=== PATIENT | male | born 1980 | race Caucasian/White ===

== ENCOUNTER 2016-12-21 14:38 | Emergency (ER) | payer BC, OTHER ==
[2016-12-21 14:46] VITALS: BP 149/85; BMI 23.1
--- NOTE | 2016-12-21 16:43 | RAD ---
HISTORY: Right foot pain. Study: Three-view right foot. Comparison: None. Findings: No acute cortical disruption or dislocation can be identified. There is no radiopaque foreign body. The visualized portions of the talus and calcaneus are unremarkable. IMPRESSION: Negative exam of the right foot. Reported By:
[2016-12-21 17:02] LABS: BASOPHILS # (AUTO) 0.1 X10^3/uL (0.0-0.1); BASOPHILS % (AUTO) 0.5 % (0.2-1.0); EOSINOPHILS # (AUTO) 0.1 x10^3/uL (0.0-0.2); EOSINOPHILS % (AUTO) 0.7 % (0.9-2.9); HEMATOCRIT 44.8 % (42.0-54.0); HEMOGLOBIN 15.7 g/dL (13.5-18.0); LYMPHOCYTES # (AUTO) 1.5 X10^3/uL (1.3-2.9); LYMPHOCYTES % (AUTO) 10.7 % (21.0-51.0); MEAN CORPUSCULAR HEMOGLOBIN 29.4 pg (27.0-34.0); MEAN CORPUSCULAR HGB CONC 35.1 g/dL (33.0-35.0); MEAN CORPUSCULAR VOLUME 83.7 fL (80.0-100.0); MEAN PLATELET VOLUME 9.5 fL (7.4-11.0); NEUTROPHILS # (AUTO) 11.3 x10^3/uL (2.2-4.8); NEUTROPHILS % (AUTO) 81.1 % (42.0-75.0); PLATELET COUNT 171 X10^3/uL (150.0-450.0); RED BLOOD COUNT 5.35 X10^6/uL (4.7-6.0); RED CELL DISTRIBUTION WIDTH 12.8 % (11.6-16.5); WHITE BLOOD COUNT 13.9 X10^3/uL (3.6-10.0)
[2016-12-21] MEDS ORDERED: NORCO 5/325 MG TAB PO ONE (17:13)
--- NOTE | 2016-12-21 17:13 | DR.GENAD ---
HPI - PCP Primary Care Physician: CHUCK BEAN - HPI Comment HPI Comment: Paaresthesia / pian in right foot and leg - Complaint/Symptoms Chief Complaint Doctors Comments: Onset of pain in r. foot today. He has numbness in the right calf and foot since the morning. He denies experiencing trauma to the extremity. He had driven a [address] round trip from here to [facility] and back. Chief Complaint:: RIGHT FOOT AND CALF PAIN REDNESS AND TIGHTNESS - Source History Provided: Patient - Mode of Arrival Mode of Arrival: Ambulatory - Timing Onset of Chief Complaint: 12/21/16 Came on: Gradually - Severity Severity: Mild - Modifying Factors Worsens:: walking Improves:: nothing PMH - PMH Past Medical History: No Past Surgical History: Yes Surgical History: Appendectomy Past Surgical History Comment: NIPPER RING REPAIR - Family History History of Family Medical Conditions: Yes Family Medical History: Hypertension - Social History Does patient currently use any type of tobacco product: No Have you used tobacco products in the last 12 months: No Type of Tobacco Use: Smokeless How many years tobacco product used: 10 Does any household member use tobacco: No Alcohol Use: Occasionally Do you use any recreational Drugs:: No Lives With: Family Lives Where: Home - infectious screening In the last 2 months have you had wt loss of >10#?: NO Have you had fever, night sweats or hemotysis?: No Have you traveled outside the country in the last 6 months?: No Isolation: Standard ROS - Review of Systems Constitutional: No Symptoms Reported Eyes: No Symptoms Reported ENTM: No Symptoms Reported Respiratoy: No Symptoms Reported Cardiovascular: No Symptoms Reported Gastrointestinal/Abdominal: No Symptoms Reported Genitourinary: No Symptoms Reported Neurological: No Symptoms Reported, Paresthesia (Rt. lower extremity) Musculoskeletal: No Symptoms Reported, Foot (pain (rt.)) Integumentary: No Symptoms Reported Hematologic/Lymphatic: No Symptoms Reported Endocrine: No Symptoms Reported Psychiatric: No Symptoms Reported All Other Systems: Reviewed and Negative PE - Vital Signs Vitals: Temperature 98.1 F Pulse Rate 89 Respiratory Rate 20 Blood Pressure 149/85 O2 Sat by Pulse Oximetry 100 - General Limitations: No Limitations General Appearance: Alert, In No Apparent Distress - Head Head Exam: Normal Inspection - Eyes Eye exam: Normal Appearance - ENT ENT Exam: Normal Exam External Ear Exam: Normal External Inspection TM/Canal Exam: Bilateral Normal Nose Exam: Normal Nose Exam Mouth Exam: Normal Inspection Throat Exam: Normal Inspection - Neck Neck Exam: Normal Inspection - Chest Chest Inspection: Normal Inspection - Respiratory Respiratory Exam: Normal Lung Sounds Bilat Respiratory Exam: Bilateral Clear to Auscultation - Cardiovascular Cardiovascular Exam: Regular Rate, Normal Rhythm - Abdominal Exam Abdominal Exam: Normal Inspection, Normal Bowel Sounds, Soft - Extremities Extremities Exam: Normal Inspection, Tenderness (proximal, dorsal/lateral area of right foot.) - Back Back Exam: Normal Inspection - Neurologic Neurological Exam: Alert, Oriented X3 - Psychiatric Psychiatric Exam: Normal Affect, Normal Mood - Skin Skin Exam: Warm, Dry, Intact, Normal Color Course - Reevaluation 1st: Improved ROR - Labs Reviewed Result Diagrams: 12/21/16 16:50 12/21/16 16:50 Laboratory: WBC 13.9 X10^3/uL (3.6-10.0) H 12/21/16 16:50 RBC 5.35 X10^6/uL (4.7-6.0) 12/21/16 16:50 Hgb 15.7 g/dL (13.5-18.0) 12/21/16 16:50 Hct 44.8 % (42.0-54.0) 12/21/16 16:50 MCV 83.7 fL (80.0-100.0) 12/21/16 16:50 MCH 29.4 pg (27.0-34.0) 12/21/16 16:50 MCHC 35.1 g/dL (33.0-35.0) H 12/21/16 16:50 RDW 12.8 % (11.6-16.5) 12/21/16 16:50 Plt Count 171 X10^3/uL (150.0-450.0) 12/21/16 16:50 MPV 9.5 fL (7.4-11.0) 12/21/16 16:50 Neut % 81.1 % (42.0-75.0) H 12/21/16 16:50 Lymph % 10.7 % (21.0-51.0) L 12/21/16 16:50 Metcalfe % 7.0 % (0.0-13.0) 12/21/16 16:50 Eos % 0.7 % (0.9-2.9) L 12/21/16 16:50 Baso % 0.5 % (0.2-1.0) 12/21/16 16:50 Neut # 11.3 x10^3/uL (2.2-4.8) H 12/21/16 16:50 Lymph # 1.5 X10^3/uL (1.3-2.9) 12/21/16 16:50 Metcalfe # 1.0 x10^3/uL (0.3-0.8) H 12/21/16 16:50 Eos # 0.1 x10^3/uL (0.0-0.2) 12/21/16 16:50 Baso # 0.1 X10^3/uL (0.0-0.1) 12/21/16 16:50 Absolute Nucleated RBC 0.0 /100WBC 12/21/16 16:50 D-Dimer < 100 ng/mL (0-400) 12/21/16 16:50 Sodium 139 mmol/L (136-145) 12/21/16 16:50 Corrected Sodium TNP 12/21/16 16:50 Potassium 3.7 mmol/L (3.5-5.1) 12/21/16 16:50 Chloride 101 mmol/L (98-107) 12/21/16 16:50 Carbon Dioxide 30.1 mmol/L (21-32) 12/21/16 16:50 BUN 12 mg/dL (7-18) 12/21/16 16:50 Creatinine 1.03 mg/dL (0.70-1.30) 12/21/16 16:50 Est GFR (MDRD) Af Amer > 60 (>60) 12/21/16 16:50 Est GFR (MDRD) Non-Af > 60 (>60) 12/21/16 16:50 Glucose 104 mg/dL (65-99) H 12/21/16 16:50 Calcium 9.1 mg/dL (8.5-10.1) 12/21/16 16:50 Corrected Calcium TNP 12/21/16 16:50 Total Bilirubin 1.90 mg/dL (0.2-1.0) H 12/21/16 16:50 AST 18 Units/L (15-37) 12/21/16 16:50 ALT 35 Units/L (12-78) 12/21/16 16:50 Alkaline Phosphatase 77 Units/L (46-116) 12/21/16 16:50 Total Protein 7.3 g/dL (6.4-8.2) 12/21/16 16:50 Albumin 4.2 g/dL (3.4-5.0) 12/21/16 16:50 Globulin 3.1 g/dL (2.5-4.5) 12/21/16 16:50 Albumin/Globulin Ratio 1.4 Ratio (1.1-2.1) 12/21/16 16:50 - Other Results Comments: Ddimer: <100 - XRAY XRAY Interpreted by: Radiologist (Negative exam of right foot) - Diagnosis Discharge Problem: Paresthesia and pain of extremity, Cellulitis and abscess of foot - Discharge Plan Condition: Stable - Follow ups/Referrals Follow ups/Referrals: NFD,None [Primary Care Provider] - 3 days - Instructions
[2016-12-21] MEDS ORDERED: NORCO 5/325 MG TAB ONE (17:21)
[2016-12-21] MEDS ORDERED: NEURONTIN CAP 400 MG PO ONE (17:22)
[2016-12-21 17:54] LABS: ALANINE AMINOTRANSFERASE 35 Units/L (12-78); ALBUMIN 4.2 g/dL (3.4-5.0); ALKALINE PHOSPHATASE 77 Units/L (46-116); ASPARTATE AMINO TRANSFERASE 18 Units/L (15-37); BLOOD UREA NITROGEN 12 mg/dL (7-18); CALCIUM 9.1 mg/dL (8.5-10.1); CARBON DIOXIDE 30.1 mmol/L (21-32); CHLORIDE 101 mmol/L (98-107); CREATININE 1.03 mg/dL (0.70-1.30); SODIUM 139 mmol/L (136-145); TOTAL PROTEIN 7.3 g/dL (6.4-8.2); eGFR BLACK RACES > 60 (>60); eGFR NON BLACK RACES > 60 (>60)
== END 2016-12-21 19:14 | disposition home or self-care (01) ==
LOC: ER 14:54
DX: R20.2 Paresthesia of skin (principal); M79.641 Pain in right hand; L03.119 Cellulitis of unspecified part of limb; L02.619 Cutaneous abscess of unspecified foot
CPT/HCPCS: 36415; 73630; 80053; 85025; 85378; 99283

== ENCOUNTER 2017-07-08 20:24 | Emergency (ER) | payer BC ==
[2017-07-08 20:30] VITALS: BP 128/74; BMI 23.1
[2017-07-08] MEDS ORDERED: BETADINE SOLN TOP ONE (21:00)
--- NOTE | 2017-07-08 21:20 | DR.LACERAT ---
HPI - Time Seen Time seen: 21:25 - Primary Care Physician Primary Care Physician: CHUCK BEAN - HPI Comment HPI Comment: TD NOT UTD. - Complaints Chief Complaint Doctors Comments: LACERATION LEFT INDEX FINGER. FINGER GOT INJURED WITH INBOUND [employer]ENT. Chief Complaint:: LACERATION NOTED TO LEFT INDEX FINGER ABOUT KNUCKLE AREA. CUT IT USING A MARKETING TEAM LEAD WORKING. - Reviewed Nurses Notes Reviewed: Yes - Source History Provided: Patient - Mode of Arrival Mode of Arrival: Ambulatory - Location Left Finger Wound's Depth, Shape: Irregular, Contused Tissue - Timing Onset of Chief Complaint: 07/08/17 - Context Mechanism: Metal (GRINGER) Tetanus Vaccination: No - Severity Pain Severity: Moderate Bleeding:: Controlled - Associated Signs and Symptoms Associated Signs and Symptoms: None PMH - PMH Past Medical History: No Past Surgical History: Yes Surgical History: Appendectomy - Family History History of Family Medical Conditions: Yes Family Medical History: Hypertension - Social History Does patient currently use any type of tobacco product: No Have you used tobacco products in the last 12 months: No Type of Tobacco Use: None Does any household member use tobacco: No Alcohol Use: Occasionally Do you use any recreational Drugs:: No Lives With: Spouse, Family Lives Where: Home - infectious screening Have you traveled outside the country in the last 6 months?: No Isolation: Standard ROS - Review of Systems Constitutional: No Symptoms Reported Eyes: No Symptoms Reported ENTM: No Symptoms Reported Respiratoy: No Symptoms Reported Cardiovascular: No Symptoms Reported Gastrointestinal/Abdominal: No Symptoms Reported Genitourinary: No Symptoms Reported Neurological: No Symptoms Reported Musculoskeletal: Left, Hand Integumentary: Wound (3CM LAC LT INDEX FINGER.) Hematologic/Lymphatic: No Symptoms Reported Endocrine: No Symptoms Reported All Other Systems: Reviewed and Negative PE - Vital Signs Vitals: Temperature 97.6 F Pulse Rate 99 Respiratory Rate 18 Blood Pressure 128/74 O2 Sat by Pulse Oximetry 99 - General Limitations: No Limitations General Appearance: Alert - Head Head Exam: Normal Inspection - Eyes Eye exam: Normal Appearance - ENT ENT Exam: Normal External Ear Exam - Neck Neck Exam: Normal Inspection - Chest Chest Inspection: Symmetric Chest Wall Rise - Respiratory Respiratory Exam: Normal Lung Sounds Bilat Respiratory Exam: Bilateral Clear to Auscultation - Cardiovascular Cardiovascular Exam: Regular Rate, Normal Rhythm, Normal Heart Sounds - Abdominal Exam Abdominal Exam: Normal Bowel Sounds, Soft. negative: Tenderness - Extremities Extremities Exam: Tenderness (3CM LAC LEFT INDEX FINGER.) - Back Back Exam: Normal Inspection - Neurologic Neurological Exam: Alert - Psychiatric Psychiatric Exam: Normal Affect, Normal Mood - Skin Skin Exam: Erythema Type of Lesion: Laceration Distribution: LUE MDM - Additional Information Obtained Additional Information Obtained From: Family - Differential Diagnosis Differential Diagnosis: Contusion, Laceration Course - Treatment Treatment: SEE ORDERS. - Education/Counseling Education/Counseling: Patient, Family, Education Educated On: Treatment, Diagnosis, Needs for Follow Up Procedures - Laceration/Wound Repair Left Finger Wound Length (cm): 3 Wound's Depth, Shape: Linear Wound Explored: contaminated Betadine Prep?: Yes Anesthesia: 1% Lidocaine Volume Anesthetic (ccs): 2 Wound Debrided: moderate Wound Repaired With: sutures Suture Size/Type: 4:0, Ethilion Number of Sutures: 6 Layer Closure?: No Sterile Dressing Applied?: Yes Splint Applied?: No Sling Applied?: No - Diagnosis Discharge Problem: Laceration - Discharge Plan Disposition: 01 HOME, SELF-CARE Condition: Stable Prescriptions: Cephalexin [KEFLEX CAP 500 MG *] 500 mg PO TID #21 cap Ibuprofen [MOTRIN TAB 800 MG *] 800 mg PO Q8H PRN #30 tab PRN Reason: Pain/Inflammation - Follow ups/Referrals Follow ups/Referrals: NFD,None [Primary Care Provider] - 3 days - Instructions Instructions: Laceration Care, Adult, [id number] Additional Instructions: RETURN TO ED IF WORSE. SUTURE OUT IN 10 DAYS
[2017-07-08] MEDS ORDERED: XYLOCAINE 1 % (PLAIN) ONE (21:21)
[2017-07-08] MEDS ORDERED: ADACEL TDaP IM ONE ×2 (21:23)
[2017-07-08] MEDS ORDERED: HYDROGEN PEROXIDE 3% ONE (21:26)
[2017-07-08] MEDS ORDERED: KEFLEX CAP 500 MG PO ONE (21:52)
[2017-07-08] MEDS ORDERED: MOTRIN TAB 800 MG PO ONE (21:52)
== END 2017-07-08 22:05 | disposition home or self-care (01) ==
LOC: ER 20:33
PROC: 0XQPXZZ Repair Left Index Finger, External Approach (ICD-10-PCS; principal; 2017-07-08)
DX: S61.211A Laceration without foreign body of left index finger without damage to nail, initial encounter (principal); W29.0XXA Contact with powered kitchen appliance, initial encounter; Y92.9 Unspecified place or not applicable
CPT/HCPCS: 90471; 99282; J2001